=== PATIENT | male | born 1995 | race Two or more races ===

== ENCOUNTER 2023-02-15 04:51 | Emergency (ER) | payer SELFPAY ==
[~2023-02-15] VITALS: Ht 185.4 cm; Wt 140.0 kg
[2023-02-15] MEDS ORDERED: LEVO500T91 PO (05:11)
[2023-02-15 05:14] LABS: Basophils # (auto) 0.1 10 ^3/uL (0-0.2); Basophils % (auto) 0.4 % (0.0-2.0); Eosinophils # (auto) 0.1 10 ^3/uL (0-0.8); Eosinophils % (auto) 0.8 % (0.0-7.0); Hematocrit 47.1 % (41.0-53.0); Hemoglobin 16.1 g/dL (13.5-17.5); Lymphocytes % (auto) 13.9 % (10.0-50.0); Mean Corpuscular Hemoglobin 29.8 pg (28.0-32.0); Mean Corpuscular Hgb Conc. 34.1 g/dL (32.0-36.0); Mean Corpuscular Volume 87.5 fL (80.0-100.0); Monocytes # (auto) 1.4 10 ^3/uL (0-1.3); Monocytes % (auto) 9.2 % (0.0-12.0); Neutrophils # (auto) 11.1 10 ^3/uL (1.6-8.6); Neutrophils % (auto) 75.7 % (37.0-80.0); Nucleated Red Blood Cells % 0.2 %; Red Blood Cells 5.38 10^6/uL (4.5-5.90); Red Cell Distribution Width 13.2 % (11.8-14.3); White Blood Cell 14.7 10^3/uL (4.4-10.8)
[2023-02-15] MEDS ORDERED: cefTRIAXone SOD 1,000 MG VL IM ONE (05:15)
[2023-02-15] MEDS ORDERED: ASPirin 325 MG TAB PO ONE (05:15)
[2023-02-15 05:33] LABS: Alanine Aminotransferase 81 U/L (7-40); Albumin 4.7 g/dL (3.2-4.8); Alkaline Phosphatase 86 U/L (46-116); Anion Gap 9 (5-15); Aspartate Aminotransferase 31 U/L (13-40); Bilirubin, Total 1.2 mg/dL (0.2-1.0); Calcium 9.3 mg/dL (8.7-10.4); Carbon Dioxide 23 mmol/L (20-30); Chloride 105 mmol/L (98-107); Glucose 115 mg/dL (74-106); Potassium 3.2 mmol/L (3.5-5.1); Sodium 137 mmol/L (136-145); Total Protein 7.8 g/dL (5.7-8.2)
[2023-02-15 05:37] LABS: BUN/Creatinine Ratio 4.8 (10.0-20.0); Blood Urea Nitrogen < 5 mg/dL (9-23)
[2023-02-15] MEDS ORDERED: POTASSIUM EFFERVESENT TAB 25 MEQ PO ONE (05:45)
[2023-02-15] MEDS ORDERED: IOHEXOL 350 MG/ML 100ML IJ ONE (06:17)
[2023-02-15] MEDS ORDERED: LORazepam 0.5 MG TAB PO ONE (07:45)
[2023-02-15 07:55] VITALS: BP 151/87; PULSE 96; RESP 20; TEMP 98.9; O2SAT 97
== END 2023-02-15 08:04 | disposition home or self-care (01) ==
LOC: ER 04:51
DX: J40 Bronchitis, not specified as acute or chronic (principal); F12.90 Cannabis use, unspecified, uncomplicated; Z88.0 Allergy status to penicillin
CPT/HCPCS: 36415; 71045; 71275; 80053; 84484; 85025; 85379; 93005; 96372; 99285; J0696; Q9967